=== PATIENT | male | born 1955 | race Caucasian/White ===

== ENCOUNTER → 2016-10-04 | Outpatient (CLI) | payer OTHER | END | disposition home or self-care (01) | LOC: CT 08:45 | PROC: BN231ZZ Computerized Tomography (CT Scan) of Bilateral Orbits using Low Osmolar Contrast (ICD-10-PCS; principal; 2016-10-04) | DX: H05.20 Unspecified exophthalmos (principal) | CPT/HCPCS: Q9967 ==